=== PATIENT | male | born 1955 | race Hispanic/Latino ===

== ENCOUNTER 2016-06-30 08:39 | Outpatient (CLI) | payer BC, MEDICARE ==
[2016-06-30 12:24] LABS: Hemoglobin A1c 5.3 % (4.0-6.0)
== END 2016-06-30 08:40 ==
LOC: NAVSJIPCSP 08:39
PROVIDERS: ATTEND Internal Medicine
DX: E78.5 Hyperlipidemia, unspecified (principal); E11.51 Type 2 diabetes mellitus with diabetic peripheral angiopathy without gangrene; I11.9 Hypertensive heart disease without heart failure; Z79.899 Other long term (current) drug therapy
CPT/HCPCS: 36415; 80061; 83036

== ENCOUNTER 2016-09-29 09:23 | Outpatient (CLI) | payer MEDICARE, BC ==
[2016-09-29 12:47] LABS: Hemoglobin A1c 5.1 % (4.0-6.0)
[2016-09-29 12:58] LABS: Cardiac Risk 1.9 (Less than 4.5)
== END 2016-09-29 09:24 ==
LOC: NAVSJIPCSP 09:23
PROVIDERS: ATTEND Internal Medicine
DX: E78.5 Hyperlipidemia, unspecified (principal); E11.51 Type 2 diabetes mellitus with diabetic peripheral angiopathy without gangrene
CPT/HCPCS: 36415; 80061; 83036

== ENCOUNTER 2018-10-17 16:26 | Emergency (ER) | payer MEDICARE ==
[2018-10-17 17:31] LABS: #Basophils 0.1 thou/uL (0.0-0.2); #Eosinphils 0.2 thou/uL (0.0-0.7); #Lymphocytes 0.9 thou/uL (1.20-3.40); #Monocytes 0.5 thou/uL (0.11-0.59); #Neutrophils 3.3 thou/uL (1.40-6.50); %Basophils 1.4 % (0.0-1.0); %Eosinophils 3.8 % (0.0-10.0); %Lymphocytes 18.1 % (21.0-51.0); %Monocytes 10.5 % (0.0-10.0); %Neutrophils 66.1 % (42.0-75.0); Hemoglobin 8.6 g/dL (14.0-18.0); Mean Corpuscular HGB CONC 32.1 g/dL (32.0-36.0); Mean Corpuscular Hemoglobin 29.9 pg (27.0-31.0); Mean Corpuscular Volume 93.3 fL (78.0-98.0); Mean Platelet Volume 5.5 fL (7.4-10.4); Platelet Count 185 thou/uL (130-400); RBC Distribution Width 13.1 % (11.5-14.5); Red Blood Cell (RBC) Count 2.87 mill/uL (4.70-6.10)
== END 2018-10-17 18:40 | disposition home or self-care (01) ==
LOC: NAV ERS 16:26
DX: T82.838A Hemorrhage due to vascular prosthetic devices, implants and grafts, initial encounter (principal); I25.10 Atherosclerotic heart disease of native coronary artery without angina pectoris; E11.9 Type 2 diabetes mellitus without complications; I10 Essential (primary) hypertension; Z79.899 Other long term (current) drug therapy; Z79.82 Long term (current) use of aspirin
CPT/HCPCS: 85025; 99283

== ENCOUNTER 2019-03-05 09:15 | Emergency (ER) | payer MEDICARE ==
[2019-03-05] MEDS ORDERED: Aspirin Chewable 81 MG TAB ONE (09:39)
[2019-03-05] MEDS ORDERED: Nitroglycerin 0.4 MG TAB (25 Tab Bottle) ONE (09:39)
[2019-03-05] MEDS ORDERED: Sodium Chloride 0.9% 1,000 ML ONE (09:41)
[2019-03-05 09:47] LABS: #Basophils 0.1 thou/uL (0.0-0.2); #Lymphocytes 0.7 thou/uL (1.20-3.40); #Monocytes 0.7 thou/uL (0.11-0.59); #Neutrophils 11.7 thou/uL (1.40-6.50); %Basophils 0.7 % (0.0-1.0); %Eosinophils 0.2 % (0.0-10.0); %Lymphocytes 5.4 % (21.0-51.0); %Monocytes 5.6 % (0.0-10.0); %Neutrophils 88.2 % (42.0-75.0); Hemoglobin 13.2 g/dL (14.0-18.0); Mean Corpuscular HGB CONC 32.7 g/dL (32.0-36.0); Mean Corpuscular Hemoglobin 30.5 pg (27.0-31.0); Mean Corpuscular Volume 93.2 fL (78.0-98.0); Platelet Count 285 thou/uL (130-400); RBC Distribution Width 14.1 % (11.5-14.5); Red Blood Cell (RBC) Count 4.33 mill/uL (4.70-6.10); White Blood Cell (WBC) Count 13.3 thou/uL (4.8-10.8)
--- NOTE | 2019-03-05 09:55 | RAD ---
Exam: Chest one view HISTORY:Chest pain. Flulike symptoms. Comparison: 01/20/2014 FINDINGS: Cardiac silhouette:Enlarged. Extensive atherosclerosis of the coronary arteries. Aorta: Unremarkable Pulmonary vessels: Slightly prominent. Costophrenic angles: Clear LUNGS: No masses or consolidation. Pneumothorax: None Osseous abnormalities: None IMPRESSION: 1. Cardiomegaly. Pulmonary vascular prominence. Correlate for volume overload. 2. Extensive atherosclerosis of the coronary artery.
[2019-03-05 10:03] LABS: ALT (SGPT) 24 U/L (8-55); Albumin 4.5 g/dL (3.4-4.8); Alkaline Phosphatase 119 U/L (40-110); Anion Gap 25 mmol/L (10-20); BUN (Urea Nitrogen) 46 mg/dL (8.4-25.7); Bilirubin, Total 0.7 mg/dL (0.2-1.2); CK (CPK) 62 U/L (30-200); Calc. Creatinine Clearance 0 mL/min (70-130); Calcium 9.5 mg/dL (7.8-10.44); Chloride 94 mmol/L (98-107); Estimated GFR-MDRD 9; Globulin 2.8 g/dL (2.4-3.5); Glucose 107 mg/dL (80-115); Potassium 5.2 mmol/L (3.5-5.1); Protein, Total 7.3 g/dL (5.8-8.1); Sodium 137 mmol/L (136-145)
[2019-03-05 10:07] LABS: AST (SGOT) 23 U/L (5-34); Carbon Dioxide 23 mmol/L (23-31)
[2019-03-05] MEDS ORDERED: Nitroglycerin 50 MG/250 ML BOT 250 ML ONE (10:17)
[2019-03-05 10:24] LABS: CKMB 1.9 ng/mL (0-6.6)
[2019-03-05] MEDS ORDERED: Heparin 5,000 UNITS/ML VIAL ONE (10:58)
[2019-03-05] MEDS ORDERED: Heparin 25,000 units/D5W 500 ML ONE (10:58)
[2019-03-05] MEDS ORDERED: Ondansetron PF 4 MG/2 ML Vial ONE (11:13)
[2019-03-05] MEDS ORDERED: Morphine 4 MG/ML VIAL ONE (11:13)
== END 2019-03-05 11:35 | disposition short-term general hospital (02) ==
LOC: NAV ERS 09:15
DX: I24.9 Acute ischemic heart disease, unspecified (principal); I12.0 Hypertensive chronic kidney disease with stage 5 chronic kidney disease or end stage renal disease; E11.22 Type 2 diabetes mellitus with diabetic chronic kidney disease; N18.6 End stage renal disease; I25.10 Atherosclerotic heart disease of native coronary artery without angina pectoris; Z99.2 Dependence on renal dialysis; Z79.82 Long term (current) use of aspirin; Z79.899 Other long term (current) drug therapy
CPT/HCPCS: 71045; 80053; 82550; 82553; 83880; 84484; 85025; 93005; 96361; 96365; 96375; J1644; J2270; J2405; J7050

== ENCOUNTER 2020-10-20 16:26 | Emergency (ER) | payer MEDICARE ==
[2020-10-20 16:57] LABS: #Basophils 0.1 thou/uL (0.0-0.2); #Eosinphils 0.1 thou/uL (0.0-0.7); #Lymphocytes 0.9 thou/uL (1.20-3.40); #Monocytes 0.5 thou/uL (0.11-0.59); #Neutrophils 3.8 thou/uL (1.40-6.50); %Basophils 1.2 % (0.0-1.0); %Eosinophils 2.5 % (0.0-10.0); %Lymphocytes 15.8 % (21.0-51.0); %Monocytes 10.1 % (0.0-10.0); %Neutrophils 70.4 % (42.0-75.0); Hemoglobin 10.3 g/dL (14.0-18.0); Mean Corpuscular HGB CONC 30.3 g/dL (32.0-36.0); Mean Corpuscular Hemoglobin 30.2 pg (27.0-31.0); Mean Corpuscular Volume 99.6 fL (78.0-98.0); Mean Platelet Volume 8.4 fL (7.4-10.4); Platelet Count 189 thou/uL (130-400); RBC Distribution Width 13.2 % (11.5-14.5); Red Blood Cell (RBC) Count 3.41 mill/uL (4.70-6.10); White Blood Cell (WBC) Count 5.4 thou/uL (4.8-10.8)
[2020-10-20 17:14] LABS: ALT (SGPT) 17 U/L (8-55); AST (SGOT) 15 U/L (5-34); Albumin 3.7 g/dL (3.4-4.8); Alkaline Phosphatase 205 U/L (40-110); Anion Gap 19 mmol/L (10-20); BUN (Urea Nitrogen) 45 mg/dL (8.4-25.7); Bilirubin, Total 0.7 mg/dL (0.2-1.2); Calc. Creatinine Clearance 0 mL/min (70-130); Calcium 9.1 mg/dL (7.8-10.44); Carbon Dioxide 28 mmol/L (23-31); Chloride 95 mmol/L (98-107); Globulin 2.3 g/dL (2.4-3.5); Glucose 135 mg/dL (80-115); Potassium 5.3 mmol/L (3.5-5.1); Sodium 137 mmol/L (136-145)
[2020-10-20 17:36] LABS: CKMB 1.3 ng/mL (0-6.6)
== END 2020-10-20 17:50 | disposition home or self-care (01) ==
LOC: NAV ERS 16:26
DX: I49.9 Cardiac arrhythmia, unspecified (principal); I25.10 Atherosclerotic heart disease of native coronary artery without angina pectoris; E11.22 Type 2 diabetes mellitus with diabetic chronic kidney disease; N18.6 End stage renal disease; Z79.82 Long term (current) use of aspirin; Z79.899 Other long term (current) drug therapy
CPT/HCPCS: 71045; 80053; 82553; 84484; 85025; 93005